=== PATIENT | female | born 1995 | race Two or more races ===

== ENCOUNTER 2022-11-10 06:06 | Observation (INO) | payer MEDICAID, OTHER ==
[~2022-11-10] VITALS: Ht 160 cm; Wt 81.8 kg
[2022-11-10 06:16] VITALS: BP 126/87
[2022-11-10] MEDS ORDERED: PREN1TAB71 OR (07:49)
[2022-11-10] MEDS ORDERED: ASPI1TAB20 PO (07:49)
[2022-11-10] MEDS ORDERED: PROG1CRE TD (07:50)
== END 2022-11-10 08:15 | disposition home or self-care (01) ==
LOC: ER 06:06 → LDRP 06:25
PROVIDERS: ADMIT Obstetrics & Gynecology; ATTEND Obstetrics & Gynecology
DX: O62.9 Abnormality of forces of labor, unspecified (principal); Z3A.26 26 weeks gestation of pregnancy
CPT/HCPCS: 59025; 81002; 99284; G0378

== ENCOUNTER 2023-01-08 | Observation (INO) | payer MEDICAID ==
[~2023-01-08] VITALS: Ht 162.6 cm; Wt 86.2 kg
[~2023-01-08] MED LIST: ASPI1TAB20 PO; PREN1TAB71 OR; PROG1CRE TD
[2023-01-08] MEDS ORDERED: TERBUTALINE SULFATE 1 MG/ML 1ML VIAL SC ONE (01:55)
[2023-01-08] MEDS ORDERED: CEPH-510 PO (02:48)
== END 2023-01-08 03:57 | disposition still patient (30) ==
LOC: ER → EDUNIT# 00:40 → LDRP 00:40
PROVIDERS: ADMIT Obstetrics & Gynecology; ATTEND Obstetrics & Gynecology
DX: O26.893 Other specified pregnancy related conditions, third trimester (principal); Z20.822 Contact with and (suspected) exposure to COVID-19; R10.11 Right upper quadrant pain; R05.9 Cough, unspecified; R09.89 Other specified symptoms and signs involving the circulatory and respiratory systems; R09.81 Nasal congestion; Z3A.35 35 weeks gestation of pregnancy
CPT/HCPCS: 36415; 59025; 81002; 87426; 87804; 94760; 96372; G0378; J3105

== ENCOUNTER 2023-02-22 01:51 | Emergency (ER) | payer MEDICAID ==
[~2023-02-22] VITALS: Ht 160 cm; Wt 76.6 kg
[~2023-02-22 01:51] MED LIST changes: +CEPH-510 PO
[2023-02-22 02:00] VITALS: BP 107/72
[2023-02-22] MEDS ORDERED: HYDROcodone-ACET 5/325MG TAB PO ONE (02:15)
[2023-02-22 02:26] LABS: Basophils # (auto) 0.1 10 ^3/uL (0-0.2); Basophils % (auto) 0.9 % (0.0-2.0); Eosinophils # (auto) 0.3 10 ^3/uL (0-0.8); Eosinophils % (auto) 3.2 % (0.0-7.0); Hematocrit 30.5 % (36.0-46.0); Hemoglobin 10.1 g/dL (12.2-16.2); Lymphocytes # (auto) 4.1 10 ^3/uL (0.4-5.4); Mean Corpuscular Hemoglobin 27.3 pg (28.0-32.0); Mean Corpuscular Hgb Conc. 33.2 g/dL (32.0-36.0); Mean Corpuscular Volume 82.4 fL (80.0-100.0); Monocytes # (auto) 0.7 10 ^3/uL (0-1.3); Monocytes % (auto) 6.4 % (0.0-12.0); Neutrophils # (auto) 5.1 10 ^3/uL (1.6-8.6); Neutrophils % (auto) 49.5 % (37.0-80.0); Nucleated Red Blood Cells % 0.1 %; Red Cell Distribution Width 15.4 % (11.8-14.3); White Blood Cell 10.3 10^3/uL (4.4-10.8)
[2023-02-22 02:47] LABS: Albumin 3.6 g/dL (3.4-5.0); BUN/Creatinine Ratio 23.9 (10.0-20.0); Calcium 9.4 mg/dL (8.5-10.1); Potassium 3.8 mmol/L (3.5-5.1)
[2023-02-22 02:50] LABS: Bilirubin, Total 0.6 mg/dL (0.2-1.0); Total Protein 7.2 g/dL (6.4-8.2)
== END 2023-02-22 04:51 | disposition home or self-care (01) ==
LOC: ER 01:51
DX: R10.2 Pelvic and perineal pain (principal)
CPT/HCPCS: 36415; 80053; 85025